=== PATIENT | male | born 1960 | race Caucasian/White ===

== ENCOUNTER 2019-07-19 17:22 | Observation (INO) ==
[2019-07-19] MEDS ORDERED: THIAMINE INJ 100 MG, FOLIC ACID INJ 1 MG, MAGNESIUM SULF INJ 2 GM, MULTIVITAMIN INJ 10 ... IV STA (17:59)
[2019-07-19 18:11] LABS: Basophils # 0.1 10*3/uL (0.0-0.2); Basophils % 1.7 % (0.0-0.8); Eosinophils # 0.3 10*3/uL (0.0-0.87); Eosinophils % 3.6 % (0.00-10.9); Hematocrit 40.8 VOL% (42.0-52.0); Immature Granulocytes % 0.7 %; Immature Granulocytes Absolute 0.05 #; Lymphocytes # 2.1 10*3/uL (1.4-4.0); Lymphocytes % 29.1 % (21.2-54.2); Mean Corpuscular HGB Conc 34.3 GM/DL (32-36); Mean Platelet Volume 9.4 FL (9.6-12.0); Monocytes % 9.1 % (1.7-12.7); Neutrophils % 55.8 % (38.7-73.9); Platelet Count 209 T/CUMM (130-400); Red Blood Count 4.69 MC/CUMM (3.8-5.5); Red Cell Distribution Width 13.9 % (9.3-17.3); White Blood Count 7.2 T/CUMM (4-12)
[2019-07-19 18:43] LABS: Salicylate < 2.8 MG/DL (2.8-20)
[2019-07-19 18:56] LABS: Albumin 3.8 G/DL (3.4-5.0); Bilirubin,Total 0.8 MG/DL (0.2-1.0); Calcium 8.6 MG/DL (8.5-10.1); Osmolality,Calculated 268.2 MOS/KG (273-304); Total Protein 8.1 G/DL (6.4-8.3)
[2019-07-19 19:06] LABS: Acetaminophen < 2.0 UG/ML (10-30)
[2019-07-19] MEDS ORDERED: POTASSIUM CHLORIDE 20 MEQ TABLET PO STA (19:29)
[2019-07-19] MEDS ORDERED: GLUCAGON 1 MG VIAL IM PRN (19:53)
[2019-07-19] MEDS ORDERED: DEXTROSE 10% 250 ML BAG IV PRN (19:53)
[2019-07-19] MEDS ORDERED: ACETAMINOPHEN 325 MG TABLET PO PRN (20:02)
[2019-07-19] MEDS ORDERED: ALUMINUM/MAGNES/SIMETH MAX STR 30 ML UDCUP PO PRN (20:02)
[2019-07-19] MEDS ORDERED: NICOTINE 21 MG/24 HR PATCH TRANSDERM PRN (20:02)
[2019-07-19] MEDS ORDERED: hydrALAZINE 20 MG/1 ML VIAL IV PRN (20:02)
[2019-07-19 20:08] LABS: Apearance,Urine CLEAR (Clear); Bilirubin,Urine Negative (Negative); Blood, Urine Moderate mg/dL (Negative); Glucose,Urine (UA) Negative (Negative); Ketones,Urine Negative (Negative); Mucus,Urine Occasional /LPF (Occasional); Nitrite,Urine Negative (Negative); Protein,Urine Negative; RBC,Urine 2 /HPF (0-4); Urine Color Yellow (Yellow); Urine Specific Gravity 1.004 (1.001-1.035); Urine Urobilinogen < 2.0 EU/DL (0.2-1.0); WBC,Urine 1 /HPF (0-6)
[2019-07-19 20:16] LABS: Barbiturates Screen,Urine Negative (Negative); Benzodiazepines Screen,Urine Negative (Negative); Cannabinoid Screen,Urine Negative (Negative); Opiate Screen,Urine Negative (Negative); Phencyclidine Screen,Urine Negative (Negative)
[2019-07-19] MEDS: SODIUM CHLORIDE 0.9% 1,000 ML IV SCH (20:40)
[2019-07-19] MEDS: ONDANSETRON 4 MG/2 ML VIAL IV PRN (20:53)
[2019-07-20] MEDS: ONDANSETRON 4 MG/2 ML VIAL IV PRN ×3 (00:48→19:26)
[2019-07-20] MEDS: SODIUM CHLORIDE 0.9% 1,000 ML IV SCH ×4 (01:35→21:30)
[2019-07-20] MEDS ORDERED: LORazepam 2 MG/1 ML VIAL IV ONE (08:59)
[2019-07-20] MEDS ORDERED: PROMETHAZINE 25 MG/1 ML VIAL IM PRN (09:00)
[2019-07-20] MEDS ORDERED: THIAMINE INJ 100 MG, FOLIC ACID INJ 1 MG, MAGNESIUM SULF INJ 2 GM, MULTIVITAMIN INJ 10 ... IV ONE (10:45)
[2019-07-20] MEDS: chlordiazePOXIDE 25 MG CAPSULE PO SCH ×4 (11:16→23:29)
[2019-07-20] MEDS ORDERED: MAGNESIUM SULF RIDER 2 GM in PREMIX 1 EACH IV PRN (11:38)
[2019-07-20] MEDS ORDERED: MAGNESIUM SULF RIDER 4 GM in PREMIX 1 EACH IV PRN (11:38)
[2019-07-20] MEDS ORDERED: PROMETHAZINE 25 MG/1 ML VIAL IV PRN (11:50)
[2019-07-20] MEDS ORDERED: PROMETHAZINE INJ 25 MG in SODIUM CHLORIDE 0.9% 50 ML IV PRN (11:51)
[2019-07-20] MEDS: POTASSIUM CHLORIDE RIDER 10 MEQ in PREMIX 1 EACH IV PRN ×5 (14:10→19:48)
[2019-07-20] MEDS: PANTOPRAZOLE 40 MG TABLET PO SCH (20:04)
[2019-07-21] MEDS: ONDANSETRON 4 MG/2 ML VIAL IV PRN (00:13)
[2019-07-21] MEDS: chlordiazePOXIDE 25 MG CAPSULE PO SCH ×5 (03:14→19:00)
[2019-07-21] MEDS: SODIUM CHLORIDE 0.9% 1,000 ML IV SCH (03:16)
[2019-07-21 06:45] LABS: Basophils # 0.1 10*3/uL (0.0-0.2); Basophils % 1.2 % (0.0-0.8); Eosinophils # 0.2 10*3/uL (0.0-0.87); Eosinophils % 4.4 % (0.00-10.9); Hematocrit 36.1 VOL% (42.0-52.0); Hemoglobin 12.4 GM/DL (14.0-18.0); Immature Granulocytes % 0.6 %; Immature Granulocytes Absolute 0.03 #; Lymphocytes # 1.2 10*3/uL (1.4-4.0); Lymphocytes % 22.1 % (21.2-54.2); Mean Corpuscular HGB Conc 34.3 GM/DL (32-36); Mean Corpuscular Volume 89.1 FL (87-102); Mean Platelet Volume 10.1 FL (9.6-12.0); Monocytes % 10.9 % (1.7-12.7); Neutrophils % 60.8 % (38.7-73.9); Red Blood Count 4.05 MC/CUMM (3.8-5.5); Red Cell Distribution Width 13.3 % (9.3-17.3); White Blood Count 5.2 T/CUMM (4-12)
[2019-07-21 06:46] LABS: Platelet Count 107 T/CUMM (130-400)
[2019-07-21 06:56] LABS: Albumin 3.2 G/DL (3.4-5.0); Bilirubin,Total 2.2 MG/DL (0.2-1.0); Calcium 8.5 MG/DL (8.5-10.1); Osmolality,Calculated 271.8 MOS/KG (273-304); Total Protein 6.7 G/DL (6.4-8.3)
[2019-07-21] MEDS: POTASSIUM CHLORIDE RIDER 10 MEQ in PREMIX 1 EACH IV PRN ×2 (07:17→09:18)
[2019-07-21] MEDS ORDERED: SODIUM PHOSPHATE INJ 30 MMOL in SODIUM CHLORIDE 0.9% 250 ML IV ONE (09:00)
[2019-07-21] MEDS ORDERED: SERTRALINE 25 MG TABLET PO SCH (09:00)
[2019-07-21] MEDS ORDERED: FOLIC ACID 1 MG TABLET PO SCH (09:00)
[2019-07-21] MEDS ORDERED: MULTIVITAMIN (CENTRUM) TABLET PO SCH (09:00)
[2019-07-21] MEDS ORDERED: cloNIDine 0.1 MG TABLET PO SCH (09:00)
[2019-07-21] MEDS ORDERED: amLODIPine 5 MG TABLET PO SCH (09:00)
[2019-07-21] MEDS ORDERED: THIAMINE 100 MG TABLET PO SCH (09:00)
[2019-07-21] MEDS: PANTOPRAZOLE 40 MG TABLET PO SCH (09:18)
[2019-07-21 21:23] VITALS: BP 146/81
== END 2019-07-21 20:45 | disposition home or self-care (01) ==
LOC: N.ED 17:22 → N.EDINP 17:22 → N.3E 22:14
PROVIDERS: ADMIT Internal Medicine; ATTEND Internal Medicine